=== PATIENT | male | born 1970 | race Caucasian/White ===

== ENCOUNTER 2017-06-23 02:03 | Emergency (ER) | payer BC ==
[~2017-06-23] VITALS: Ht 182.9 cm; Wt 109.3 kg
[~2017-06-23 02:03] MED LIST: ALBUAER2 INH; AZIT500T26 PO; PROM25TA PO
[2017-06-23 02:06] VITALS: TEMP 36.5; Ht 182.9 cm; Wt 109.3 kg
[2017-06-23] MEDS ORDERED: ALBUT/IPRATROP 3MG/0.5MG NEB 3 ML VIAL INH STA (02:23)
[2017-06-23] MEDS ORDERED: ASPIRIN 324 MG CHEW PO STA (02:23)
--- NOTE | 2017-06-23 02:28 | EMERGENCY ROOM VISIT NOTE ---
History First contact with patient: 02:16 Chief Complaint: CHEST PAIN Stated Complaint: CHEST PAIN,SOB Nursing Triage Summary: Patient reports chest pain that started earlier tonight that has gotten worse ovr the past few hours. Patient reports shortness of breath and numbness in right arm. Patient reports no cardiac history. History of Present Illness The patient is a 46 year old male who presents to the Emergency Room with complaints of chest pain. The patient states that around 8 PM he developed pain in the left side of his chest and felt a numbness in the right arm. He states that he then developed shortness of breath. The chest pain has largely subsided but he became very short of breath when he tried to lay down. The patient states he has had a cough and sinus congestion for the last 3 days. He denies any earache, sore throat, fever. He denies any abdominal pain, nausea or vomiting. He denies any personal or family history of coagulopathy, DVT, PE. He denies any leg pain or leg swelling. He denies any recent surgery or travel. The patient has never had a stress test or cardiac catheterization. He denies any personal or family history of coronary artery disease. He denies any personal history of hypertension, hyperlipidemia or diabetes. Review of Systems A 10 system review of systems was completed with positives and pertinent negatives listed in the HPI. Past Medical/Surgical History patient denies Social History Smoking Status: Former Smoker Occupation Status: employed Current/Historical Medications Scheduled Levofloxacin (Levaquin), 500 MG PO DAILY Prednisone (Prednisone), 0 PO DAILY Physical Exam Vital Signs Date Time Temp Pulse Resp B/P (MAP) Pulse Ox O2 Delivery O2 Flow Rate FiO2 06/23/17 05:11 81 16 146/87 96 06/23/17 03:33 81 26 06/23/17 03:13 129/80 06/23/17 03:03 88 18 06/23/17 03:00 129/80 06/23/17 02:33 83 22 06/23/17 02:19 85 06/23/17 02:16 155/99 06/23/17 02:16 94 Room Air 06/23/17 02:06 36.5 84 19 140/90 94 Room Air Physical Exam VITALS: Vitals are noted on the nurse's note and reviewed by myself. Vital signs stable. The patient is afebrile. GENERAL: This is a 46-year-old male, in no acute distress, nondiaphoretic, well- developed well-nourished. SKIN: The skin was without rashes, erythema, edema, or bruising. There is no tenting of the skin. Capillary reflex less than 2 seconds. HEAD: Normocephalic atraumatic. EARS: The external ears are normal in appearance. EYES: Pupils equal round and reactive to light and accommodation. Conjunctivae without injection, sclerae without icterus. Extraocular movements intact. NOSE: Patent, turbinates without inflammation or discharge. MOUTH: Mucous membranes moist. Tonsils are not enlarged. Pharynx without erythema or exudate. Uvula midline. Airway patent. Tongue does not deviate. NECK: Supple without nuchal rigidity. No lymphadenopathy. No thyromegaly. Cervical spine is nontender. No JVD. HEART: Regular rate and rhythm without murmurs gallops or rubs. LUNGS: There are scattered expiratory wheezes particularly on the left. No retractions or accessory muscle use. ABDOMEN: Positive bowel sounds x 4. Soft, nontender, without masses or organomegaly. MUSCULOSKELETAL: No muscle atrophy, erythema, or edema noted. Full range of motion without joint tenderness in all extremities. No tenderness to palpation. Normal gait. Strength 5/5 throughout. NEURO: Patient was alert and oriented to person place and time. No focal neurological deficits. Medical Decision & Procedures ER Provider Diagnostic Interpretation: CHEST ONE VIEW PORTABLE CLINICAL HISTORY: chest pain dyspnea COMPARISON STUDY: 12/08/2010 FINDINGS: The bones soft tissues and hemidiaphragms are normal. The cardiomediastinal silhouette is normal. The lungs are clear. The pulmonary vasculature is normal. IMPRESSION: Negative chest. Laboratory Results 06/23/17 02:15 Red Blood Count 5.20, Mean Corpuscular Volume 86.5, Mean Corpuscular Hemoglobin 31.7, Mean Corpuscular Hemoglobin Concent 36.7, Mean Platelet Volume 9.5, Neutrophils (%) (Auto) 54.2, Lymphocytes (%) (Auto) 24.3, Monocytes (%) (Auto) 8.6, Eosinophils (%) (Auto) 11.7, Basophils (%) (Auto) 1.1, Neutrophils # (Auto ) 4.50, Lymphocytes # (Auto) 2.02, Monocytes # (Auto) 0.71, Eosinophils # (Auto ) 0.97, Basophils # (Auto) 0.09 06/23/17 02:15 Test 06/23/17 02:15 06/23/17 03:47 White Blood Count 8.30 K/uL (4.8-10.8) Red Blood Count 5.20 M/uL (4.7-6.1) Hemoglobin 16.5 g/dL (14.0-18.0) Hematocrit 45.0 % (42-52) Mean Corpuscular Volume 86.5 fL (80-100) Mean Corpuscular Hemoglobin 31.7 pg (25-34) Mean Corpuscular Hemoglobin Concent 36.7 g/dl (32-36) Platelet Count 226 K/uL (130-400) Mean Platelet Volume 9.5 fL (7.4-10.4) Neutrophils (%) (Auto) 54.2 % Lymphocytes (%) (Auto) 24.3 % Monocytes (%) (Auto) 8.6 % Eosinophils (%) (Auto) 11.7 % Basophils (%) (Auto) 1.1 % Neutrophils # (Auto) 4.50 K/uL (1.4-6.5) Lymphocytes # (Auto) 2.02 K/uL (1.2-3.4) Monocytes # (Auto) 0.71 K/uL (0.11-0.59) Eosinophils # (Auto) 0.97 K/uL (0-0.5) Basophils # (Auto) 0.09 K/uL (0-0.2) RDW Standard Deviation 38.3 fL (36.4-46.3) RDW Coefficient of Variation 12.0 % (11.5-14.5) Immature Granulocyte % (Auto) 0.1 % Immature Granulocyte # (Auto) 0.01 K/uL (0.00-0.02) Prothrombin Time 10.5 SECONDS (9.0-12.0) Prothromb Time International Ratio 1.0 (0.9-1.1) Activated Partial Thromboplast Time 26.8 SECONDS (21.0-31.0) Partial Thromboplastin Ratio 1.0 D-Dimer 400 ug/L FEU (0-500) Anion Gap 7.0 mmol/L (3-11) Est Creatinine Clear Calc Drug Dose 125.4 ml/min Estimated GFR () 112.2 Estimated GFR (Non- 96.8 BUN/Creatinine Ratio 16.9 (10-20) Calcium Level 8.4 mg/dl (8.5-10.1) Total Bilirubin 0.6 mg/dl (0.2-1) Aspartate Amino Transf (AST/SGOT) 23 U/L (15-37) Alanine Aminotransferase (ALT/SGPT) 47 U/L (12-78) Alkaline Phosphatase 102 U/L (45-117) Total Protein 7.2 gm/dl (6.4-8.2) Albumin 3.5 gm/dl (3.4-5.0) Globulin 3.7 gm/dl (2.5-4.0) Albumin/Globulin Ratio 0.9 (0.9-2) Troponin I < 0.015 ng/ml (0-0.045) Medications Administered Medications (Trade) Dose Ordered Sig/Leonidas Route Start Time Stop Time Status Last Admin Dose Admin Aspirin (Aspirin Chew) 324 mg NOW STAT PO 06/23/17 02:23 06/23/17 02:25 DC 06/23/17 02:44 324 MG Albuterol/ Ipratropium (Duoneb) 3 ml NOW STAT INH 06/23/17 02:23 06/23/17 02:25 DC 06/23/17 02:43 3 ML Levofloxacin (Levaquin Tab) 500 mg NOW STAT PO 06/23/17 04:48 06/23/17 04:49 DC 06/23/17 05:11 500 MG Prednisone (PredniSONE TAB) 60 mg NOW STAT PO 06/23/17 04:48 06/23/17 04:49 DC 06/23/17 05:11 60 MG Albuterol (Ventolin Hfa Inhaler) 2 puffs Q4R STAT INH 06/23/17 04:48 06/23/17 04:49 DC 06/23/17 05:11 2 PUFFS Procedure The patient was monitored on a quality assurance monitor. They maintained a normal sinus rhythm without ectopy. ECG Indication: chest pain Rate (beats per minute): 84 Rhythm: normal sinus Findings: no acute ischemic change Comparison ECG Date: no prior available ED Course The patient was seen and examined. Previous visits were reviewed. The patient does not have a fever or leukocytosis. He does not have any significant electrolyte abnormality. Troponin was not elevated. Initial troponin was negative. A repeat troponin approximately 2 hours later was negative. The repeat troponin was just about 8 hours after the onset of pain. The patient was given DuoNeb He was given aspirin The patient presents to the emergency department with chest pain and shortness of breath. The patient has few cardiac risk factors. He has initial and repeat troponin which are negative. The patient does have expiratory wheezes, worse on the left. This is likely related to upper respiratory tract infection , bronchitis with bronchospasm. He will be given an albuterol inhaler and placed on prednisone and Levaquin. He should follow-up with his family doctor this week for recheck. He should return to the ER with worsening symptoms. The case was discussed with Dr. mann who agrees with the assessment and treatment plan. Medical Decision DIFFERENTIAL DIAGNOSIS: Aortic dissection, myocarditis, pericarditis, cervical disc disease, costochondritis, herpes zoster, rib fracture, pleuritis, pneumonia , pulmonary embolus, tension pneumothorax, anxiety disorder, somatoform disorder , choledocholithiasis, status, esophagitis, esophageal spasm, esophageal reflux , esophageal rupture, pancreatitis, peptic ulcer disease, cardiac ischemia, ST elevation NM, acute coronary syndrome, arrhythmia, coronary artery vasospasm. vavular heart disease, coronary artery disease, among others. Impression Primary Impression: Substernal precordial chest pain Additional Impression: Bronchitis Departure Information Dispostion Home / Self-Care Condition GOOD Prescriptions Levofloxacin (Levaquin) 500 Mg Tab 500 MG PO DAILY for 5 Days, #5 TAB Prov: Samantha Cano PA-C 06/23/17 Prednisone (Prednisone) 20 Mg Tab 0 PO DAILY, #18 TAB 3 DAILY FOR 3 DAYS, THEN 2 DAILY FOR 3 DAYS, THEN 1 DAILY FOR 3 DAYS. Prov: Samantha Cano PA-C 06/23/17 Referrals Stuart Clinton M.D. ([facility]) (PCP) Patient Instructions Bronchitis Acute, Chest Pain - [facility] Additional Instructions Use the inhaler 1-2 puffs every 4-6 hours for wheezing Levaquin as prescribed, until finished for bronchitis/infection Prednisone as prescribed, until finished Follow up with your family doctor later this week for recheck Return with any worsening symptoms Problem Qualifiers
[2017-06-23 02:36] LABS: BASO % 1.1 %; BASO ABS # 0.09 K/uL (0-0.2); COMPLETE YES; EOS % 11.7 %; IG% 0.1 %; LYMPH % 24.3 %; LYMPH ABS # 2.02 K/uL (1.2-3.4); MEAN CELL VOLUME 86.5 fL (80-100); MEAN CORPUSCULAR HEMOGLOBIN 31.7 pg (25-34); MEAN CORPUSCULAR HGB CONC 36.7 g/dl (32-36); MEAN PLATELET VOLUME 9.5 fL (7.4-10.4); MONO % 8.6 %; NEUT % 54.2 %; PLATELET COUNT 226 K/uL (130-400)
[2017-06-23 02:48] LABS: PROTHROMBIN TIME (PATIENT) 10.5 SECONDS (9.0-12.0)
[2017-06-23 02:53] LABS: ALT/SGPT 47 U/L (12-78); AST/SGOT 23 U/L (15-37); BLOOD UREA NITROGEN 16 mg/dl (7-18); BUN/CREATININE RATIO 16.9 (10-20); CALCIUM 8.4 mg/dl (8.5-10.1); CARBON DIOXIDE 24 mmol/L (21-32); CHLORIDE 108 mmol/L (98-107); CREATININE 0.94 mg/dl (0.60-1.40); GLUCOSE 133 mg/dl (70-99); POTASSIUM 3.9 mmol/L (3.5-5.1); SODIUM 139 mmol/L (136-145)
[2017-06-23 02:58] LABS: ALB/GLOB RATIO 0.9 (0.9-2); ALKALINE PHOSPHATASE 102 U/L (45-117)
[2017-06-23] MEDS ORDERED: ALBUTEROL HFA 8 GM INHALER INH STA (04:48)
[2017-06-23] MEDS ORDERED: LEVOFLOXACIN 250 MG TAB PO STA (04:48)
[2017-06-23] MEDS ORDERED: PRED20TA PO (04:55)
[2017-06-23] MEDS ORDERED: LEVO-366 PO (04:55)
[2017-06-23 05:11] VITALS: BP 146/87; PULSE 81; O2SAT 96
--- NOTE | 2017-06-23 06:33 | DIAGNOSTIC IMAGING REPORT ---
CHEST ONE VIEW PORTABLE CLINICAL HISTORY: chest pain dyspnea COMPARISON STUDY: 12/08/2010 FINDINGS: The bones soft tissues and hemidiaphragms are normal. The cardiomediastinal silhouette is normal. The lungs are clear. The pulmonary vasculature is normal. IMPRESSION: Negative chest. The above report was generated using voice recognition software. It may contain grammatical, syntax or spelling errors. Electronically signed by: Rocky Yi M.D. 06/23/2017 6:32 AM Dictated Date/Time: 06/23/2017 6:31 AM
== END 2017-06-23 05:12 | disposition home or self-care (01) ==
LOC: C.EDB 02:04
DX: R07.2 Precordial pain (principal); J40 Bronchitis, not specified as acute or chronic; Z87.891 Personal history of nicotine dependence